=== PATIENT | male | born 1960 | race Native Hawaiian/Other Pacific Islander ===

== ENCOUNTER 2017-08-29 08:36 | Outpatient (CLI) | payer OTHER ==
[~2017-08-29 08:36] MED LIST: LISI5TAB10 PO; LORCET HD 10-321 TAB PO; MOBIC15 MG PO; PANT40TA PO; XANAX XR1 MG PO; ZANTAC 75 PO; ZOCOR80 MG PO
== END 2017-08-29 09:40 | disposition home or self-care (01) ==
LOC: RAD 08:36
DX: R22.1 Localized swelling, mass and lump, neck (principal); R13.12 Dysphagia, oropharyngeal phase

== ENCOUNTER 2017-10-10 08:15 | Outpatient (CLI) | payer OTHER | END 2017-10-10 23:34 | disposition home or self-care (01) | LOC: CT 08:15 | DX: R22.1 Localized swelling, mass and lump, neck (principal); R13.12 Dysphagia, oropharyngeal phase | CPT/HCPCS: 36415; 82565; 84520; Q9963 ==

== ENCOUNTER 2018-01-30 12:02 | Outpatient (CLI) | payer OTHER | END 2018-01-30 22:15 | disposition home or self-care (01) | LOC: LABW 12:02 → RAD 12:02 | DX: R05 Cough (principal) ==